=== PATIENT | male | born 1980 | race Caucasian/White ===

== ENCOUNTER 2024-04-11 08:14 | Emergency (ER) | payer MEDICARE, MEDICAID ==
[2024-04-11] MEDS: Ketorolac 30 MG/ML SDV IM ONE (08:45)
== END 2024-04-11 09:32 | disposition home or self-care (01) ==
LOC: LB.ED 08:14
DX: S60.012A Contusion of left thumb without damage to nail, initial encounter (principal); S60.222A Contusion of left hand, initial encounter; W23.0XXA Caught, crushed, jammed, or pinched between moving objects, initial encounter
CPT/HCPCS: 73130-LT; 96372; 99283; J1885